=== PATIENT | female | born 1960 | race Caucasian/White ===

== ENCOUNTER → 2020-09-02 | Outpatient (CLI) | payer BC, OTHER ==
[~2020-09-02] MED LIST: OMNICEF 300 MG300 MG PO; ZITHROMAX250 MG PO; ZOFRAN ODT 4 MG4 MG PO
== END ==
LOC: MAMO 13:26
DX: R92.8 Other abnormal and inconclusive findings on diagnostic imaging of breast (principal)
CPT/HCPCS: 76641-RT; 77065; G0279

== ENCOUNTER → 2021-07-31 | Outpatient (CLI) | payer OTHER | LOC: MAMO 09:37 | DX: R92.8 Other abnormal and inconclusive findings on diagnostic imaging of breast (principal) | CPT/HCPCS: 77066; G0279 ==